=== PATIENT | female | born 1985 | race Caucasian/White ===

== ENCOUNTER → 2016-09-20 | Outpatient (CLI) | payer BC | LOC: FIMAGING 13:20 | PROVIDERS: ATTEND Obstetrics & Gynecology | DX: Z34.81 Encounter for supervision of other normal pregnancy, first trimester (principal); Z3A.11 11 weeks gestation of pregnancy ==

== ENCOUNTER → 2016-11-15 | Outpatient (CLI) | payer BC | LOC: FIMAGING 07:50 | PROVIDERS: ATTEND Obstetrics & Gynecology | DX: Z34.92 Encounter for supervision of normal pregnancy, unspecified, second trimester (principal); Z3A.19 19 weeks gestation of pregnancy ==

== ENCOUNTER 2017-03-18 10:47 | Inpatient (IN) | payer BC ==
--- NOTE | 2017-03-18 10:59 | OBPROG ---
Labor Progress Note Assessment/Plan: Assessment:cat 1 fhr 1/100/-1 cephalic regular contractions q 5 minutes apart. will walk and move around for a bit and then recheck cervix for change coping fair with the pain breathing through Plan:walk recheck cervix after several hours patient and family ok with plan of care 03/18/17 10:57 Subjective/Intrapartum Course: 03/18/17 10:56 Woke up last night in pain and abdominal tenderness, need to use the bathroom and then early am regular contractions after resting for a bit. Feeling positive movement denies leaking or bleeding. Had mucousy dischagre this am - SVE Dilation (cm): 1 Effacement (%): 100 Station: 0 Membranes: Intact - Contraction Pattern Assessment Current Contraction Pattern: Regular - FHR Assessment Hoffmann FHR (bpm): 135 FHR Pattern Variability: Moderate FHR Category: 1 - AP Antepartum Course: transfer of care at 20 weeks. hx of scoliosis 03/18/17 10:59 - Physical Exam General Appearance: WD/WN, alert, no apparent distress Respiratory: chest non-tender, lungs clear, normal breath sounds Cardiac/Chest: regular rate, rhythm Abdomen: normal bowel sounds Extremities: normal range of motion DTR- Lower Extremities: Knee (R): 1+, Knee (L): 1+ Skin: normal color, warm/dry Neuro/Psych: no motor/sensory deficits, alert, normal mood/affect, oriented x 3 ICD10 Worksheet Patient Problems: Problems Problem Status Onset labor check Acute
--- NOTE | 2017-03-18 11:19 | GHP ---
[f rep st] HISTORY AND PHYSICAL DATE OF ADMISSION: 03/18/2017 The patient is a 2, para 0, 0, A1 living 0, 32-year-old with an EDC of 04/05/2017, wh o comes in on 03/18/2017 with complaints of regular contractions since early a.m. Denies bleeding. States mucusy discharge. States feeling positive movement. Gestational age is 37 and 3/7 week s'. The patient was a transfer of care to [facility] at 20 and 3/7 weeks' from [facility] [place]. The p magdiel has been receiving routine care with [facility] since then. MEDICAL HISTORY: History of scoliosis. No other medical history. GYNECOLOGICAL HISTORY: History of OCP use. SOCIAL HISTORY: Patient is to [place]. No drug use. No tobacco use. PREVIOUS HISTORY: A SAB in 06/25/2016. PRESENT HISTORY: On admit patient is 1 cm, 100% effaced, -1 station, cephalic. Bag water is intact. Kassidy regularly q.5 minutes. The patient is working through and coping well with t he pain. SURGICAL HISTORY: Benign. LABS: Patient is O positive. Antibody negative. RPR is nonreactive. Rubella is immune. Hepatitis is negative. HIV is negative. Varicella is immune. Trio screen is negative. TSH was within sergo l limits at 0.875. Pap is within normal limits. Gonorrhea and chlamydia are negative. Verifi was n egative. One-hour GTT was within normal limits. Group beta strep is negative. PLAN OF CARE: 1. Ambulate for 2-3 hours and then recheck. 2. Intermittent monitoring with NST on admit. 3. Recheck cervix in 2-3 hours. 4. Patient is GBS negative. 5. Consult for plan of care with Dr. Loida Ortiz as needed. /[id number]/MODL
--- NOTE | 2017-03-18 11:19 | GHP ---
[f rep st] HISTORY AND PHYSICAL DATE OF ADMISSION: 03/18/2017 The patient is a 2, para 0, 0, A1 living 0, 32-year-old with an EDC of 04/05/2017, wh o comes in on 03/18/2017 with complaints of regular contractions since early a.m. Denies bleeding. States mucusy discharge. States feeling positive movement. Gestational age is 37 and 3/7 week s'. The patient was a transfer of care to [facility] at 20 and 3/7 weeks' [place] [facility] [place] The p magdiel has been receiving routine care with [facility] since then. MEDICAL HISTORY: History of scoliosis. No other medical history. GYNECOLOGICAL HISTORY: History of OCP use. SOCIAL HISTORY: Patient is to [place]. No drug use. No tobacco use. PREVIOUS HISTORY: A SAB in 06/25/2016. PRESENT HISTORY: On admit patient is 1 cm, 100% effaced, -1 station, cephalic. Bag water is intact. Kassidy regularly q.5 minutes. The patient is working through and coping well with t he pain. SURGICAL HISTORY: Benign. LABS: Patient is O positive. Antibody negative. RPR is nonreactive. Rubella is immune. Hepatitis is negative. HIV is negative. Varicella is immune. Trio screen is negative. TSH was within sergo l limits at 0.875. Pap is within normal limits. Gonorrhea and chlamydia are negative. Verifi was n egative. One-hour GTT was within normal limits. Group beta strep is negative. PLAN OF CARE: 1. Ambulate for 2-3 hours and then recheck. 2. Intermittent monitoring with NST on admit. 3. Recheck cervix in 2-3 hours. 4. Patient is GBS negative. 5. Consult for plan of care with Dr. Loida Ortiz as needed. /[id number]/MODL
--- NOTE | 2017-03-18 11:19 | GHP ---
[f rep st] HISTORY AND PHYSICAL DATE OF ADMISSION: 03/18/2017 The patient is a 2, para 0, 0, A1 living 0, 32-year-old with an EDC of 04/05/2017, wh o comes in on 03/18/2017 with complaints of regular contractions since early a.m. Denies bleeding. States mucusy discharge. States feeling positive movement. Gestational age is 37 and 3/7 week s'. The patient was a transfer of care to [facility] at 20 and 3/7 weeks' from [facility] [place]. The p magdiel has been receiving routine care with [facility] since then. MEDICAL HISTORY: History of scoliosis. No other medical history. GYNECOLOGICAL HISTORY: History of OCP use. SOCIAL HISTORY: Patient is to [place]. No drug use. No tobacco use. PREVIOUS HISTORY: A SAB in 06/25/2016. PRESENT HISTORY: On admit patient is 1 cm, 100% effaced, -1 station, cephalic. Bag water is intact. Kassidy regularly q.5 minutes. The patient is working through and coping well with t he pain. SURGICAL HISTORY: Benign. LABS: Patient is O positive. Antibody negative. RPR is nonreactive. Rubella is immune. Hepatitis is negative. HIV is negative. Varicella is immune. Trio screen is negative. TSH was within sergo l limits at 0.875. Pap is within normal limits. Gonorrhea and chlamydia are negative. Verifi was n egative. One-hour GTT was within normal limits. Group beta strep is negative. PLAN OF CARE: 1. Ambulate for 2-3 hours and then recheck. 2. Intermittent monitoring with NST on admit. 3. Recheck cervix in 2-3 hours. 4. Patient is GBS negative. 5. Consult for plan of care with Dr. Loida Ortiz as needed. /[id number]/MODL
[2017-03-18] MEDS ORDERED: OXYTOCIN 20 UNIT in LR 1,000 ML IV PRN (14:05)
[2017-03-18] MEDS ORDERED: OLIVE OIL 118 ML BTL MISC PRN (14:05)
[2017-03-18] MEDS ORDERED: TERBUTALINE SULFATE 1 MG/ML VIAL IV PRN (14:05)
[2017-03-18] MEDS ORDERED: EPSOM SALT 454 GM TP PRN (14:05)
[2017-03-18] MEDS ORDERED: LR 1,000 ML IV PRN (14:05)
--- NOTE | 2017-03-18 14:05 | OBPROG ---
Labor Progress Note Assessment/Plan: Assessment:cat 1 fhr 5-6/100/0 cephalic regular contractions q3- 5 minutes apart. will get into the tub to assist with pain relief nausea and vomiting will give patient some fluid coping fair with the pain breathing through Plan:admit/ expectant management of labor 03/18/17 10:57 03/18/17 14:04 Subjective/Intrapartum Course: 03/18/17 10:56 Woke up last night in pain and abdominal tenderness, need to use the bathroom and then early am regular contractions after resting for a bit. Feeling positive movement denies leaking or bleeding. Had mucousy discharge this am 03/18/17 14:02 Doing well coping fair with the contractions. Pain increasing. Rom clear fluid 1300 - SVE Dilation (cm): 5, 6 Effacement (%): 100 Station: 0 Membranes: SROM Amniotic Fluid Color: Clear - Contraction Pattern Assessment Current Contraction Pattern: Regular - FHR Assessment Hoffmann FHR (bpm): 135 FHR Pattern Variability: Moderate FHR Category: 1 - AP Antepartum Course: transfer of care at 20 weeks. hx of scoliosis 03/18/17 10:59 Oxytocin Orders Assessment - Pre-Induction/Augmentation Assessment Gestational Age: 37 week(s) and 0 day(s) ICD10 Worksheet Patient Problems: Problems Problem Status Onset labor check Acute
[2017-03-18] MEDS ORDERED: OLIVE OIL 118 ML BTL ONE (14:19)
[2017-03-18] MEDS ORDERED: LIDOCAINE 1% 300 MG/30 ML SDV ONE (14:19)
[2017-03-18] MEDS ORDERED: AMMONIA AROMATIC 1 EACH AMP IH ONE (14:20)
[2017-03-18] MEDS ORDERED: TERBUTALINE SULFATE 1 MG/ML VIAL ONE (14:20)
[2017-03-18] MEDS ORDERED: OXYTOCIN 10 UNIT/ML VIAL ONE (14:20)
[2017-03-18] MEDS ORDERED: MISOPROSTOL 200 MCG TAB ONE (14:20)
[2017-03-18 14:54] LABS: PLATELET COUNT 163 10^3/uL (150-400)
--- NOTE | 2017-03-18 16:05 | OBPROG ---
Labor Progress Note Assessment/Plan: Assessment: cat 2 fhr continuous monitoring with pushing contractions q 2-3 minutes in hands and knees position feeling urge to push 10/100/0/+1 station iv infiltrated will do IM pitocin Plan:pushing with contractions 03/18/17 10:57 03/18/17 14:04 03/18/17 15:50 Subjective/Intrapartum Course: 03/18/17 10:56 Woke up last night in pain and abdominal tenderness, need to use the bathroom and then early am regular contractions after resting for a bit. Feeling positive movement denies leaking or bleeding. Had mucousy discharge this am 03/18/17 14:02 Doing well coping fair with the contractions. Pain increasing. Rom clear fluid 1300 Objective: 03/18/17 14:45 - SVE Dilation (cm): 10 Effacement (%): 100 Station: 0, +1 Membranes: SROM Amniotic Fluid Color: Clear - Contraction Pattern Assessment Current Contraction Pattern: Regular - FHR Assessment Hoffmann FHR (bpm): 120 FHR Pattern Variability: Moderate FHR Category: 2 - AP Antepartum Course: transfer of care at 20 weeks. hx of scoliosis 03/18/17 10:59 Oxytocin Orders Assessment - Pre-Induction/Augmentation Assessment Gestational Age: 37 week(s) and 0 day(s) ICD10 Worksheet Patient Problems: Problems Problem Status Onset labor check Acute
[2017-03-18] MEDS ORDERED: HYDROCODONE/APAP 5/325 TAB PO PRN (18:47)
[2017-03-18] MEDS ORDERED: HYDROCORTISONE 0.5% CREAM TP PRN (18:47)
[2017-03-18] MEDS ORDERED: ACETAMINOPHEN 325 MG TAB PO PRN (18:47)
[2017-03-18] MEDS ORDERED: SIMETHICONE 80 MG TAB CHEW PO PRN (18:47)
--- NOTE | 2017-03-18 18:47 | OBDEL ---
Info Type: Vaginal Presentation at Delivery: Vertex L&D Analgesia/Anesthesia Type: None GBS+: No - Hospital Course Intrapartum: 03/18/17 10:56 Woke up last night in pain and abdominal tenderness, need to use the bathroom and then early am regular contractions after resting for a bit. Feeling positive movement denies leaking or bleeding. Had mucousy discharge this am 03/18/17 14:02 Doing well coping fair with the contractions. Pain increasing. Rom clear fluid 1300 Indications for Delivery: Spontaneous Labor, SROM Vaginal Delivery - Delivery Provider Delivery Physician/CNM: Alycia Kerns Proctoring Provider: Loida Ugalde - Labor and Delivery Onset of Contractions Date: 03/18/17 Onset of Contractions Time: 00:00 Onset of Contractions Type: Spontaneous Rupture of Membranes Date: 03/18/17 Rupture of Membranes Time: 13:10 Rupture of Membranes Type: Spontaneous Amniotic Fluid Color: Clear Dilation Complete Date: 03/18/17 Dilation Complete Time: 15:45 Placenta Delivery Date: 03/18/17 Placenta Delivery Time: 18:30 Total Hours of Labor: 18 Laceration: 1st Degree Repair: 3-0, Vicryl Vaginal Sponge Count Correct: Yes Vaginal Needle Count Correct: Yes Vaginal Sweep Performed: No EBL: 400 Delivery Events: None Delivery Comment: manual removal of the placenta by dr. ugalde. pitocin 10mu im . IV infiltrated . 800mcg cytotec per rectum Data Hoffmann Delivery Date: 03/18/17 Delivery Time: 17:56 RAVI: 04/05/17 Gestational Age: 37 week(s) and 3 day(s) Sex of : Male Score (1 Min): 8 Score (5 Min): 9 ICD10 Worksheet Patient Problems: Problems Problem Status Onset labor check Acute
[2017-03-18] MEDS: IBUPROFEN 600 MG TAB PO PRN (19:42)
[2017-03-19] MEDS: IBUPROFEN 600 MG TAB PO PRN ×4 (01:51→20:01)
[2017-03-19] MEDS: DOCUSATE SODIUM 100 MG CAP PO PRN ×2 (07:34→20:02)
--- NOTE | 2017-03-19 15:52 | OBPP ---
Progress Note Assessment/Plan: Assessment: PPD 1 s/p then manual extraction of retained placenta Plan: routine care. 03/19/17 15:50 Subjective/ Course: 03/19/17 15:50 Pt doing well. has been trying to have baby latch - working to have baby stay more awake. nipples are sore. bld is light. urinating fine. not dizzy and encouraged fluids as pt has low b/p. has taken naps. Objective: 03/19/17 02:00 Patient ABO/Rh O POSITIVE 03/18/17 14:45 Temp Pulse Resp BP Pulse Ox 36.7 C 92 17 91/48 L 95 03/19/17 12:01 03/19/17 12:01 03/19/17 12:01 03/19/17 12:01 03/19/17 12:01 Uterine Position/Fundal Height: Umbilicus -2 Uterine Tone: Firm Physical Exam - Physical Exam Abdomen: non-tender, soft Extremities: non-tender, pedal edema (minimal) Skin: normal color, warm/dry Neuro/Psych: alert, normal mood/affect
[2017-03-20] MEDS: DOCUSATE SODIUM 100 MG CAP PO PRN (07:52)
[2017-03-20] MEDS: IBUPROFEN 600 MG TAB PO PRN (07:52)
[2017-03-20 09:21] VITALS: BP 120/78; PULSE 90; RESP 14; TEMP 97.5; O2SAT 96
--- NOTE | 2017-03-20 10:05 | OBPP ---
Progress Note Assessment/Plan: Assessment: ppd# 2 s/p s/p manual extraction of placenta breast feeding Plan: routine post care and discharge instructions 03/20/17 10:03 Subjective/ Course: 03/19/17 15:50 Pt doing well. has been trying to have baby latch - working to have baby stay more awake. nipples are sore. bld is light. urinating fine. not dizzy and encouraged fluids as pt has low b/p. has taken naps. 03/20/17 10:04 patient is doing great. having some pain with breast feeding but otherwise it is going well. denies headache and changes in vision. ambulating. passing gas. Objective: 03/19/17 02:00 Patient ABO/Rh O POSITIVE 03/18/17 14:45 Temp Pulse Resp BP Pulse Ox 36.4 C 90 14 120/78 96 03/20/17 08:00 03/20/17 08:00 03/20/17 08:00 03/20/17 08:00 03/20/17 08:00 Uterine Position/Fundal Height: Umbilicus -3 Uterine Tone: Firm Physical Exam - Physical Exam Neck: non-tender, full range of motion, supple Respiratory: chest non-tender, lungs clear, normal breath sounds Cardiac/Chest: normal peripheral pulses, regular rate, rhythm Abdomen: normal bowel sounds, non-tender Extremities: normal range of motion, non-tender, normal inspection, normal capillary refill Skin: normal color, warm/dry Neuro/Psych: no motor/sensory deficits, alert, normal mood/affect, oriented x 3
--- NOTE | 2017-03-20 10:10 | OBGCSDC ---
General Delivery Information - General Info : 2 Para: 1 Abortions: 1 Type: Vaginal L&D Analgesia/Anesthesia Type: Local Admission Date: 03/18/17 Labs: Patient ABO/Rh O POSITIVE 03/18/17 14:45 Hct 39.2 % (38.0-47.0) 03/19/17 02:00 - Hospital Course Antepartum: transfer of care at 20 weeks. hx of scoliosis 03/18/17 10:59 Intrapartum: 03/18/17 10:56 Woke up last night in pain and abdominal tenderness, need to use the bathroom and then early am regular contractions after resting for a bit. Feeling positive movement denies leaking or bleeding. Had mucousy discharge this am 03/18/17 14:02 Doing well coping fair with the contractions. Pain increasing. Rom clear fluid 1300 : 03/19/17 15:50 Pt doing well. has been trying to have baby latch - working to have baby stay more awake. nipples are sore. bld is light. urinating fine. not dizzy and encouraged fluids as pt has low b/p. has taken naps. 03/20/17 10:04 patient is doing great. having some pain with breast feeding but otherwise it is going well. denies headache and changes in vision. ambulating. passing gas. Vaginal - Delivery Provider Delivery Physician/CNM: Alycia Kerns - Diagnosis Labor: Spontaneous Rupture of Membranes Type: Spontaneous Amniotic Fluid Color: Clear Laceration: 1st Degree Repair: 3-0, Vicryl Delivery Events: Retained Placenta (manual extraction of placenta by josse ugalde) - Delivery EBL: 400 [place] Data Hoffmann Delivery Date: 03/18/17 Delivery Time: 17:59 RAVI: 04/05/17 Gestational Age: 37 week(s) and 5 day(s) Sex of Infant: Male Weight (gm): 3304 kg Score (1 Min): 8 Score (5 Min): 9 Discharge Information - Discharge Information Condition: Good Instruction/Follow Up: Four Weeks (post mood check ), Six Weeks (post visit)
== END 2017-03-20 14:55 | disposition home or self-care (01) | DRG 767 ==
LOC: FLD 10:47 → OBSVTOIN 17:56 → FOB 20:33
PROVIDERS: ADMIT Obstetrics & Gynecology; ATTEND Obstetrics & Gynecology
DX: O70.0 First degree perineal laceration during delivery (principal); O72.2 Delayed and secondary postpartum hemorrhage; Z3A.37 37 weeks gestation of pregnancy; Z37.0 Single live birth
CPT/HCPCS: J3105